=== PATIENT | male | born 1990 | race Caucasian/White ===

== ENCOUNTER 2022-04-21 15:07 | Emergency (ER) | payer OTHER, SELFPAY ==
--- NOTE | ~2022-04-21 | XR_ITS ---
Clinical Indication: Chest pain PA and lateral views of the chest: Comparison: None Findings: The lungs are clear, without evidence of focal consolidation or pleural effusion. Cardiome diastinal silhouette is within normal limits. Bones and soft tissues are unremarkable. Impression: Normal chest. Reviewed, dictated and finalized at location [] E FARM MANAGER Impression: Normal chest.
--- NOTE | ~2022-04-21 | CT_ITS ---
EXAMINATION: CTA chest PE protocol DATE: 04/21/2022 17:39 INDICATION: chest pain TECHNIQUE: Computed tomography angiography (CTA) of the chest was performed with 100 mL Omnipaque-350 intravenous contrast timed to evaluate the pulmonary arteries. Coronal maximum intensity projection 3D-reconstructions were created by the technologist. The dose-length product (DLP) was 726.29 mGy-cm. Automated exposure control and iterative reconstruction technique were employed. COMPARISON: X-ray chest, same date. FINDINGS: Lung parenchyma and airways: Minimal dependent atelectasis. Pleura: Unremarkable. Thoracic inlet, axillae and chest wall: Unremarkable. Thoracic aorta: Normal. Mediastinum: Normal. Heart and pericardium: Normal. Coronary artery calcifications: Absent. Upper abdomen: No significant finding. Bones: No acute osseous finding. Pulmonary arteries: Study quality: Adequate. No pulmonary emboli detected. IMPRESSION: No CT evidence of acute pulmonary embolus. No acute process detected in the chest. Reviewed, dictated and finalized at location K. RT/EXPORT ADMINISTRATOR IMPRESSION: No CT evidence of acute pulmonary embolus. No acute process detected in the [address].
--- NOTE | 2022-04-21 15:09 | ECG_ITS ---
Measurements Intervals [place] Rate: 83 P: 39 DC: 146 QRS: 75 QRSD: 110 T: 11 QT: 353 QTc: 415 Interpretive Statements SINUS RHYTHM NONSPECIFIC T-WAVE ABNORMALITY NO PREVIOUS ECG AVAILABLE FOR COMPARISON Electronically Signed On 04-21-2022 15:51:10 EXHIBITION SPECIALIST by Brittaney iVllafana M.D.
[2022-04-21 15:31] VITALS: BP 140/93; PULSE 93; RESP 18; TEMP 36.9; O2SAT 98
[2022-04-21 15:39] LABS: Basophils Percent Auto 0.6 % (0.2-1.2); Eosinophils Absolute Auto 0.1 K/mm3 (0-0.3); Eosinophils Percent Auto 1.9 % (0-4.4); Hematocrit 42.7 % (42.0-52.0); Hemoglobin 15.5 g/dL (14.0-18.0); Immature Granulocyte Absolute 0.03 K/mm3 (0.00-0.031); Immature Granulocyte Percent A 0.5 % (0-0.5); Lymphocytes Absolute Auto 1.91 K/mm3 (0.9-3.2); Lymphocytes Percent Auto 30.2 % (18.3-44.2); Mean Corpuscular HGB Conc 36.3 g/dl (32-36); Mean Corpuscular Hemoglobin 31.1 pg (26-34); Mean Corpuscular Volume 85.6 fl (80-100); Mean Platelet Volume 9.6 fl (7.4-10.4); Monocytes Absolute Auto 0.5 K/mm3 (0.1-0.6); Monocytes Percent Auto 7.3 % (2.6-8.5); Neutrophils Absolute Auto 3.8 K/mm3 (1.3-6.7); Neutrophils Percent Auto 59.5 % (45.5-73.1); Platelet Count Result 246 k/mm3 (150-375); Red Blood Count 4.99 M/mm3 (4.6-6.20); Red Cell Distribution Width 11.9 % (11.5-14.5); White Blood Count 6.3 K/mm3 (4.5-10.0)
[2022-04-21 15:59] LABS: INR 1.1; Partial Thromboplastin Time 25.8 SECONDS (22.3-36.8); Prothrombin Time 13.4 Seconds (11.1-14.7)
[2022-04-21 16:01] LABS: Alanine Aminotransferase 51 U/L (6-50); Albumin Level 4.7 g/dL (3.5-5.1); Alkaline Phosphatase 80 U/L (38-126); Anion Gap 7 mmol/L (8-16); Aspartate Amino Transferase 26 U/L (17-59); Bilirubin,Total 0.6 mg/dL (0.2-1.3); Blood Urea Nitrogen 17 mg/dL (9-20); Carbon Dioxide 25 mmol/L (22-30); Chloride 109 mmol/L (98-107); Estimated CRCL calculation 114 ml/min; Estimated Glomerular Filt Rate > 60; Glucose 103 mg/dL (65-110); Lipase 54 U/L (23-300); Potassium 3.7 mmol/L (3.4-5.0); Sodium 141 mmol/L (137-145)
[2022-04-21 16:12] LABS: Troponin I < 0.012 ng/mL (0.000-0.034)
[2022-04-21] MEDS: SODIUM CHLORIDE 0.9% IV 1,000 ML 999 ML IV CONT (17:29)
[2022-04-21 17:35] LABS: Influenza A QL RT-PCR Negative (Negative); Influenza B QL RT-PCR Negative (Negative); RSV RNA, RT-PCR Negative (Negative); SARS-CoV-2 RNA PCR Negative
--- NOTE | 2022-04-21 17:39 | ED.CHESTPAIN ---
HPI - Chest Pain General Chief Complaint: Chest Pain Stated Complaint: chest pain Time Seen by Provider: 04/21/22 16:20 History of Present Illness HPI narrative: 31-year-old male presents emergency room for evaluation of intermittent chest pain for 10 days. Reports feeling like somebody is sticking a knuckle into the left lateral wall of his chest. States pain is present for several minutes to hours. Patient states that he had COVID over Thanksgiving break 2 and half weeks ago, recovered in 4 days after taking Plaquenil and ivermectin. Also endorses shortness of breath, brain fog, and fatigue. Related Data Home Medications Medication Instructions Recorded Confirmed omeprazole 40 mg capsule,delayed mg 04/21/22 release Allergies Allergy/AdvReac Type Severity Reaction Status Date / Time acetaminophen [From Percocet] Allergy Itching Verified 04/21/22 16:26 oxycodone [From Percocet] Allergy Itching Verified 04/21/22 16:26 Penicillins Allergy Difficulty Verified 04/21/22 16:26 Breathing Review of Systems Review of Systems: CONSTITUTIONAL: Denies fever, chills, or sweats. EYES: Denies visual changes, redness, or discharge. ENT: Denies rhinorrhea, congestion, sore throat, or otalgia. CARDIOVASCULAR: Reports chest pain RESPIRATORY: Denies cough or dyspnea. GASTROINTESTINAL: Denies abdominal pain, nausea, vomiting, or diarrhea. GENITOURINARY: Denies dysuria or hematuria. SKIN: Denies rash or itching. MUSCULOSKELETAL: Denies back pain, joint pain, or myalgia. NEUROLOGIC: Reports dizziness PSYCHIATRIC: Denies anxiety or depression. Exam Narrative: GENERAL: Well-appearing, well-nourished, no physical limitations, and in no acute distress. HEAD: Normocephalic, atraumatic. EYES: Conjunctivae normal, PERRLA and EOMI. ENT: External nose normal, Nares clear, no rhinorrhea or epistaxis. Mucous membranes moist. Oropharynx without tonsillar hypertrophy exudate or other lesions. External ears normal, bilateral TMs normal bilaterally NECK: Supple. No adenopathy or masses. CHEST: Clear to auscultation. No respiratory distress. No wheezes rales or rhonchi. HEART: Regular rate and rhythm. No murmur heard. Normal peripheral pulses. EXTREMITIES: Normal range of motion. No edema. No clubbing or cyanosis SKIN: Warm, dry, no rash. No noted wounds NEURO: No focal deficits. Alert and oriented x3. MAEW. CN's II-XI intact bilaterally, normal gait PSYCH: Cooperative. Normal mood and affect. Course Vital Signs Vital signs: Vital Signs Temperature 36.9 C 04/21/22 15:31 Pulse Rate 93 04/21/22 15:31 Respiratory Rate 18 04/21/22 15:31 Blood Pressure 140/93 H 04/21/22 15:31 Pulse Oximetry 98 04/21/22 15:31 Oxygen Delivery Room Air 04/21/22 15:31 Temperature 36.9 C 04/21/22 15:31 Pulse Rate 93 04/21/22 15:31 Respiratory Rate 18 04/21/22 15:31 Blood Pressure 140/93 H 04/21/22 15:31 Pulse Oximetry 98 04/21/22 15:31 Oxygen Delivery Room Air 04/21/22 15:31 MDM - Chest Pain MDM Narrative Medical decision making narrative: 31-year-old male presented emergency room complaints of chest pain for 10 days. Exam showed no evidence of volume overload. EKG showed normal sinus rhythm, no signs of ischemia. Troponin was negative. Patient had a slightly elevated D-dimer, CTA was obtained showing no evidence of PE. Labs are unremarkable. Chest x-ray showed no acute cardiopulmonary process. Heart score was 0. Will discharge patient home to be CP follow-up. We will also provide patient 5-day course of steroids as this could be possible effects of long COVID. Lab Data 04/21/22 15:32 04/21/22 15:32 Labs: Lab Results 04/21/22 04/21/22 04/21/22 Range/Units 15:32 15:32 15:32 WBC 6.3 (4.5-10.0) K/mm3 RBC 4.99 (4.6-6.20) M/mm3 Hgb 15.5 (14.0-18.0) g/dL Hct 42.7 (42.0-52.0) % MCV 85.6 (80-100) fl MCH 31.1 (26-34) pg MCHC 36.3 H (32-36
[2022-04-21 19:07] VITALS: BP 148/86; PULSE 88; RESP 16; O2SAT 98
--- NOTE | 2022-04-29 12:39 | PC.NURSE ---
LATE ENTRY This note is being entered to document information to the patient's record. The following information was omitted on [04/21/22], by [Bishnu Mendoza]. NS stopped at 1825
--- NOTE | 2022-05-02 20:07 | PC.NURSE ---
LATE ENTRY This note is being entered to document information to the patient's record. The following information was omitted on [04/21/22], by [tiara agudelo]. NS ended at 1830
== END 2022-04-21 19:08 | disposition home or self-care (01) ==
PROVIDERS: Emergency Medicine; Emergency Provider Nurse Practitioner Family
DX: R07.89 Other chest pain (principal); Z20.822 Contact with and (suspected) exposure to COVID-19; Z86.16 Personal history of COVID-19
CPT/HCPCS: 36415; 71046; 71275; 80053; 83690; 84484; 85025; 85380; 85610; 85730; 87637; 93005; 96360; 99284; J7030; Q9967

== ENCOUNTER 2023-12-13 19:17 | Emergency (ER) | payer OTHER, SELFPAY ==
--- NOTE | ~2023-12-13 | CT_ITS ---
EXAMINATION: CT brain wo con DATE: 12/13/2023 19:29 INDICATION: right side facial numbness . TECHNIQUE: Computed tomography (CT) of the head was performed without intravenous contrast. The mA wa s adjusted according to patient size. Iterative reconstruction technique was employed. The dose-lengt h product was 605.33 mGy-cm. COMPARISON: None. FINDINGS: No acute intracranial hemorrhage or extra-axial fluid collection. No hydrocephalus, mass, or herniation. No acute ischemic infarct. Unremarkable dural venous sinus attenuation. No acute osseous abnormality. Mucosal thickening and an air-fluid level noted in the right maxillary sinus, the remaining aerated s paces are clear. IMPRESSION: No acute intracranial process. Right maxillary air-fluid level, likely hemorrhage (patient reportedly has a nosebleed currently). Results reported telephonically to Dr. Sanders by Dr. Seo at 7:30 PM on 12/13/2023. Reviewed, dictated and finalized at location K. IMPRESSION: No acute intracranial process. Right maxillary air-fluid level, likely hemorrhage (patient reportedly has a no sebleed currently). Results reported telephonically to Dr. Sanders by Dr. Seo at 7:30 PM on 12/13/2023.
--- NOTE | ~2023-12-13 | CT_ITS ---
EXAMINATION: CTA brain carotid DATE: 12/13/2023 19:48 INDICATION: right side facial numbness, nose bleed s/p adjustm TECHNIQUE: Computed tomographic angiography (CTA) of the head and neck was performed with 100 mL Omni paque-350 intravenous contrast. Automated exposure control and iterative reconstruction technique wer e employed. The dose-length product was 1158.04 mGy-cm. Maximum intensity projection and volume rend ered 3D-reconstructions were created by the technologist on a separate workstation. COMPARISON: CT brain, same date. FINDINGS: CTA HEAD: No large vessel occlusion, aneurysm, high flow vascular malformation, nidus or extravasation. Symmetr ic parenchymal enhancement. Patent cerebral veins. CTA NECK: Aortic arch and proximal great vessels: Bovine arch anatomy. Right common carotid, carotid bifurcation, and internal carotid artery: No significant plaque.There i s 0% stenosis of the proximal right internal carotid artery relative to normal distal artery lumen di ameter (NASCET criteria). Left common carotid, carotid bifurcation, and internal carotid artery: No significant plaque.There is 0% stenosis of the proximal left internal carotid artery relative to normal distal artery lumen diam eter (NASCET criteria). Vertebral arteries: No significant plaque or stenosis. Other findings: None. IMPRESSION: No large vessel intracranial occlusion, high-grade intracranial stenosis, or aneurysm. No carotid or vertebral artery occlusion, dissection, or significant stenosis. Reviewed, dictated and finalized at location K. IMPRESSION: No large vessel intracranial occlusion, high-grade intracranial stenosis, or an eurysm. No carotid or vertebral artery occlusion, dissection, or significant stenosis.
[2023-12-13 19:24] LABS: Glucose Point of Care 105 mg/dl (65-105)
[2023-12-13 19:38] LABS: Basophils Percent Auto 0.5 % (0.2-1.2); Eosinophils Absolute Auto 0.2 K/mm3 (0-0.3); Eosinophils Percent Auto 2.1 % (0-4.4); Hemoglobin 15.2 g/dL (14.0-18.0); Immature Granulocyte Absolute 0.02 K/mm3 (0.00-0.031); Immature Granulocyte Percent A 0.3 % (0-0.5); Lymphocytes Absolute Auto 2.57 K/mm3 (0.9-3.2); Lymphocytes Percent Auto 34.5 % (18.3-44.2); Mean Corpuscular HGB Conc 36.2 g/dl (32-36); Mean Corpuscular Hemoglobin 30.9 pg (26-34); Mean Corpuscular Volume 85.4 fl (80-100); Mean Platelet Volume 9.4 fl (7.4-10.4); Monocytes Absolute Auto 0.5 K/mm3 (0.1-0.6); Monocytes Percent Auto 7.1 % (2.6-8.5); Neutrophils Absolute Auto 4.1 K/mm3 (1.3-6.7); Neutrophils Percent Auto 55.5 % (45.5-73.1); Platelet Count Result 193 k/mm3 (150-375); Red Blood Count 4.92 M/mm3 (4.6-6.20); Red Cell Distribution Width 12.3 % (11.5-14.5); White Blood Count 7.5 K/mm3 (4.5-10.0)
[2023-12-13 19:42] LABS: Estimated Glomerular Filt Rate > 60
[2023-12-13 19:46] VITALS: BP 158/94; PULSE 76; RESP 18; TEMP 36.9; O2SAT 96
[2023-12-13 19:50] LABS: Alanine Aminotransferase 44 U/L (6-50); Albumin Level 4.5 g/dL (3.5-5.1); Alkaline Phosphatase 95 U/L (38-126); Anion Gap 11 mmol/L (4-12); Aspartate Amino Transferase 30 U/L (17-59); Bilirubin,Total 0.8 mg/dL (0.2-1.3); Blood Urea Nitrogen 13 mg/dL (9-20); Calcium 9.4 mg/dL (8.4-10.2); Carbon Dioxide 23 mmol/L (22-30); Chloride 104 mmol/L (98-107); Estimated Glomerular Filt Rate > 60; Glucose 107 mg/dL (65-110); Magnesium 1.9 mg/dL (1.6-2.3); Potassium 3.6 mmol/L (3.4-5.0); Sodium 138 mmol/L (137-145)
[2023-12-13 19:51] VITALS: BP 158/94; PULSE 76; RESP 16; O2SAT 96
[2023-12-13 19:51] LABS: INR 1.1; Prothrombin Time 14.1 Seconds (11.1-14.7)
[2023-12-13 19:52] LABS: Partial Thromboplastin Time 25.8 Seconds (22.3-36.8)
[2023-12-13 19:55] VITALS: BP 158/94; PULSE 78; RESP 18; TEMP 36.9; O2SAT 95
[2023-12-13] MEDS: SODIUM CHLORIDE 0.9% IV 1,000 ML 999 ML IV CONT (19:58)
[2023-12-13 20:01] LABS: Troponin I < 0.012 ng/mL (0.000-0.034)
--- NOTE | 2023-12-13 20:42 | ED.GENADULT ---
HPI - General Adult General Chief complaint: Neuro Symptoms/Deficit Stated complaint: numbness Time Seen by Provider: 12/13/23 19:22 History of Present Illness HPI narrative: Patient is a 33-year-old gentleman presents emergency department chief complaint of nose bleed. Patient reports he was mood related by the chiropractor then when to get something to eat and then felt as though his nose and started a drip in any had a large amount of blood from his right nostril. The patient states that he feels pressure in his right forehead in his right maxillary sinus area. The patient reports no weakness in his arms or legs denies numbness or tingling in his arms or legs reports no altered mental status. Patient reports not being on blood thinners reports that was not aggressively manipulated during chiropractic adjustment Related Data Home Medications Medication Instructions Recorded Confirmed omeprazole 40 mg capsule,delayed mg 04/21/22 release Allergies Allergy/AdvReac Type Severity Reaction Status Date / Time acetaminophen [From Percocet] Allergy Itching Verified 04/21/22 16:26 oxycodone [From Percocet] Allergy Itching Verified 04/21/22 16:26 Penicillins Allergy Difficulty Verified 04/21/22 16:26 Breathing Review of Systems Review of Systems: A 10 system review of systems was completed on the patient and is negative except for what is stated in the HPI. Nursing and ancillary documentation was reviewed. Exam Narrative: GENERAL: Well-appearing, well-nourished, and in no acute distress. HEAD: Normocephalic, atraumatic. EYES: PERRLA and EOMI. ENT: Nares clear, no rhinorrhea or epistaxis. Mucous membranes moist. NECK: Supple. CHEST: Clear to auscultation. No respiratory distress. HEART: Regular rate and rhythm. No murmur heard. Normal peripheral pulses. ABDOMEN: Soft, nontender, nondistended, normal active bowel sounds. EXTREMITIES: Normal range of motion. No edema. SKIN: Warm, dry, no rash. NEURO: No focal deficits. Alert and oriented x3. PSYCH: Normal mood and affect. Course Vital Signs Vital signs: Vital Signs Temperature 36.9 C 12/13/23 19:46 Pulse Rate 76 12/13/23 19:46 Respiratory Rate 18 12/13/23 19:46 Blood Pressure 158/94 H 12/13/23 19:46 Pulse Oximetry 96 08/06/24 19:46 Oxygen Delivery Room Air 12/13/23 19:46 Temperature 36.9 C 12/13/23 19:55 Pulse Rate 78 12/13/23 19:55 Respiratory Rate 18 12/13/23 19:55 Blood Pressure 158/94 H 12/13/23 19:55 Pulse Oximetry 95 12/13/23 19:55 Oxygen Delivery Room Air 12/13/23 19:46 Medical Decision Making Vital Signs Vital Signs: Vital Signs Temperature 36.9 C 12/13/23 19:46 Pulse Rate 76 12/13/23 19:46 Respiratory Rate 18 12/13/23 19:46 Blood Pressure 158/94 H 12/13/23 19:46 Pulse Oximetry 96 12/13/23 19:46 Oxygen Delivery Room Air 12/13/23 19:46 Temperature 36.9 C 12/13/23 19:55 Pulse Rate 78 12/13/23 19:55 Respiratory Rate 18 12/13/23 19:55 Blood Pressure 158/94 H 12/13/23 19:55 Pulse Oximetry 95 12/13/23 19:55 Oxygen Delivery Room Air 12/13/23 19:46 Lab Data 12/13/23 19:32 12/13/23 19:33 Labs: Lab Results 12/13/23 12/13/23 12/13/23 Range/Units 19:21 19:32 19:33 WBC 7.5 (4.5-10.0) K/mm3 RBC 4.92 (4.6-6.20) M/mm3 Hgb 15.2 (14.0-18.0) g/dL Hct 42.0 (42.0-52.0) % MCV 85.4 (80-100) fl MCH 30.9 (26-34) pg MCHC 36.2 H (32-36) g/dl RDW 12.3 (11.5-14.5) % Plt Count 193 (150-375) k/mm3 MPV 9.4 (7.4-10.4) fl Immature Gran % (Auto) 0.3 (0-0.5) % Neut % (Auto) 55.5 (45.5-73.1) % Lymph % (Auto) 34.5 (18.3-44.2) % [place] % (Auto) 7.1 (2.6-8.5) % Eos % (Auto) 2.1 (0-4.4) % Baso % (Auto) 0.5 (0.2-1.2) % Lymph # (Auto) 2.57 (0.9-3.2) K/mm3 [place] # (Auto) 0.5 (0.1-0.6) K/mm3 Eos # (Auto) 0.2 (0-0.3) K/mm3 Baso # (Auto)
[2023-12-13] MEDS: PHENYLEPHRINE 1% NA SPR (*BKC) 15 ML BTL 2 SPRAY NASAL (20:54)
[2023-12-13 21:08] LABS: Lactic Acid Reflex 0.6 mmol/L (0.7-2.0)
[2023-12-13 21:17] LABS: Add Urine Microscopic? NO; Appearance Urine Clear (Clear); Bilirubin Urine Negative (Negative); Blood Urine Negative (Negative); Color Urine Yellow (Yellow); Glucose Urine UA Negative (Negative); Ketones Urine Negative (Negative); Leukocyte Esterase Ur Negative LEU/UL (Negative); Nitrate Urine Negative (Negative); Protein Urine Negative (Negative); Specific Grav Ur > 1.045 (1.001-1.035); Urobilinogen Urine 0.2 mg/dL (<2.0); pH Urine 7.5 (5.0-9.0)
[2023-12-13 21:35] VITALS: BP 154/99; PULSE 81; RESP 19; TEMP 37.1; O2SAT 94
== END 2023-12-13 21:35 | disposition home or self-care (01) ==
PROVIDERS: Emergency Provider Emergency Medicine
DX: R04.0 Epistaxis (principal); R51.9 Headache, unspecified
CPT/HCPCS: 36415; 70450; 70496; 70498; 80053; 81003; 82948; 83605; 83735; 84484; 85025; 85610; 85730; 96360; 99284; A9270; J7030; Q9967

== ENCOUNTER 2025-02-18 12:10 | Emergency (ER) | payer OTHER, SELFPAY ==
--- NOTE | ~2025-02-18 | CT_ITS ---
EXAMINATION: CT abdomen pelvis w con DATE: 02/18/2025 15:28 INDICATION: Right abdominal pain. TECHNIQUE: Computed tomography (CT) of the abdomen and pelvis was performed with 100 mL Omnipaque 350 intravenous contrast. Automated exposure control and iterative reconstruction technique were employed. The dose-length product was 970.66 mGy-cm. COMPARISON: None. FINDINGS: The visualized portions of lung bases demonstrate mild atelectasis. No pleural effusion. The heart size is normal. No pericardial effusion. The liver, gallbladder, spleen, pancreas, adrenal glands, and kidneys are normal. There are no dilated loops of bowel. The appendix is normal. There are no pathologically enlarged lymph nodes. There is no free intraperitoneal fluid. There is a supraumbilical ventral hernia containing fat. There is mild thoracic and lumbar spondylosis. IMPRESSION: 1. Supraumbilical ventral hernia containing fat. Reviewed, dictated and finalized at location E.
[2025-02-18 12:48] VITALS: BP 149/93; PULSE 66; RESP 16; TEMP 36.9; O2SAT 98
[2025-02-18 13:15] LABS: Hematocrit 45.5 % (42.0-52.0); Hemoglobin 16.2 g/dL (14.0-18.0); Immature Granulocyte Percent A 0.2 % (0-0.5); Lymphocytes Absolute Auto 1.79 K/mm3 (0.9-3.2); Mean Corpuscular HGB Conc 35.6 g/dl (32-36); Mean Corpuscular Hemoglobin 30.5 pg (26-34); Mean Corpuscular Volume 85.5 fl (80-100); Nucleated Red Blood Cells Absolute Auto 0.000 K/mm3 (0.0-0.012); Nucleated Red Blood Cells Perc 0.0 % (0.0-0.2); Platelet Count Result 220 k/mm3 (150-375); Red Blood Count 5.32 M/mm3 (4.6-6.20); White Blood Count 4.7 K/mm3 (4.5-10.0)
[2025-02-18 13:29] LABS: Alanine Aminotransferase 50 U/L (6-50); Albumin Level 4.9 g/dL (3.5-5.1); Alkaline Phosphatase 87 U/L (38-126); Anion Gap 6 mmol/L (4-12); Aspartate Amino Transferase 29 U/L (17-59); Bilirubin,Total 0.6 mg/dL (0.2-1.3); Blood Urea Nitrogen 15 mg/dL (9-20); Calcium 9.5 mg/dL (8.4-10.2); Carbon Dioxide 26 mmol/L (22-30); Chloride 104 mmol/L (98-107); Estimated CRCL calculation 105 ml/min; Estimated Glomerular Filt Rate > 60; Glucose 103 mg/dL (65-110); Lipase 45 U/L (23-300); Potassium 4.2 mmol/L (3.4-5.0); Sodium 136 mmol/L (137-145); Total Protein 8.2 g/dL (6.3-8.2)
[2025-02-18 13:33] LABS: Add Urine Microscopic? NO; Appearance Urine Clear (Clear); Glucose Urine UA Negative (Negative); Leukocyte Esterase Ur Negative LEU/UL (Negative); Nitrate Urine Negative (Negative); Specific Grav Ur 1.022 (1.001-1.035)
--- NOTE | 2025-02-18 14:55 | ED_ITS ---
HPI - Abdominal Pain General Chief Complaint: Abdominal Pain Stated Complaint: abdominal pain Time Seen by Provider: 02/18/25 14:56 Source: patient Mode of arrival: ambulatory Limitations: no limitations History of Present Illness HPI narrative: Patient is a 34-year-old male who presents the ED with report of abdominal pain. 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 He states he went to take a shower noticed that his belly button had filled with fluid and had been protruding outward. [place] bloated overall. States the swelling has since gone down since resting/sitting, but is still having some discomfort throughout R sided abdomen. Reports diarrhea with intermittent bright red rectal bleeding for the past couple weeks. States he notices the blood mostly with wiping after the bowel movement. Denies rectal pain with bowel movements. Related Data Home Medications ?Medication ?Instructions ?Recorded ?Confirmed ?Last Taken ?Type omeprazole 40 mg capsule,delayed mg 04/21/22 Unknown History release Allergies Allergy/AdvReac Type Severity Reaction Status Date / Time oxycodone (From Percocet) Allergy Itching Verified 02/18/25 12:11 Penicillins Allergy Difficulty Verified 02/18/25 12:11 Breathing Review of Systems 2 Review of Systems: All systems reviewed & are unremarkable except as noted in HPI. All systems reviewed & are unremarkable except as noted in HPI and below Exam 2 Narrative: GENERAL: Well-appearing, obese with BMI of 33.8, and in no acute distress. HEAD: Normocephalic, atraumatic. CHEST: Clear to auscultation. ?No respiratory distress. HEART: Regular rate and rhythm.? ABD: Mild discomfort throughout R mid to lower abdomen. Small umbilical hernia, minimally tender, soft, easily reducible. Nondistended. Normal bowel sounds. SKIN: Clean, dry, intact NEURO: ?Alert and oriented x3. Steady gait. No ataxic movements. PSYCHIATRIC: Normal mood and affect. Course Vital Signs Vital signs: Vital Signs Temperature 98.4 F 02/18/25 12:48 Pulse Rate 66 02/18/25 12:48 Respiratory Rate 16 02/18/25 12:48 Blood Pressure 149/93 H 02/18/25 12:48 Pulse Oximetry 98 02/18/25 12:48 Oxygen Delivery Room Air 02/18/25 12:48 Temperature 98.4 F 02/18/25 12:48 Pulse Rate 65 02/18/25 15:09 Respiratory Rate 14 02/18/25 15:09 Blood Pressure 153/86 H 02/18/25 15:09 Pulse Oximetry 99 02/18/25 15:09 Oxygen Delivery Room Air 02/18/25 12:48 MDM - Abdominal Pain MDM Narrative Medical decision making narrative: MSE by ANKIT in triage. Care resumed by myself. Patient with small reducible umbilical hernia on exam. Vital signs are otherwise stable. He is in no acute distress. Laboratory studies are unremarkable. No leukocytosis or anemia. Stable electrolytes. Stable kidney function. Normal LFTs and lipase. UA is clear. CT scan of abdomen/pelvis was obtained: IMPRESSION: 1. Supraumbilical ventral hernia containing fat. Discussed lab and imaging findings, overall reassuring workup with patient. Will refer to General surgery for management of hernia if needed. Discussed techniques to reduce if hernia does present again. Discussed possibility of hemorrhoids causing occasional rectal bleeding. Will refer to GI. Discussed [id number] therapies to try. Patient otherwise safe for discharge home. Given strict return precautions. He agrees with plan. Feels comfortable going home. Discharged in stable condition. Medical Records Attestation: I reviewed the patient's medical records. Lab Data Attestation: I reviewed the patient's lab results. 02/18/25 13:06 02/18/25 13:06 Labs: Lab Results 02/18/25 02/18/25 Range/Units 13:06 13:22 WBC 4.7 (4.5-10.0) K/mm3 RBC 5.32 (4.6-6.20) M/mm3 Hgb 16.2 (14.0-18.0) g/dL Hct 45.5 (42.0-52.0) % MCV 85.5 (80-100) fl MCH 30.5 (26-34) pg MCHC 35.6 (32-36) g/dl RDW 12.4 (11.5-14.5) % Plt Count 220 (150-375) k/mm3 MPV 9.1 (7.4-10.4) fl Immature Gran % (Auto) 0.2 (0-0.5) % Neut % (Auto) 47.2 (45.5-73.1) % Lymph % (Auto) 38.5 (18.3-44.2) % [place] % (Auto) 10.5 H (2.6-8.5) % Eos % (Auto) 3.0 (0-4.4) % Baso % (Auto) 0.6 (0.2-1.2) % Lymph # (Auto) 1.79 (0.9-3.2) K/mm3 [place] # (Auto) 0.5 (0.1-0.6) K/mm3 Eos # (Auto) 0.1 (0-0.3) K/mm3 Baso # (Auto) 0.0 (0.0-0.1) K/mm3 Abs Immat Gran (auto) 0.01 (0.00-0.031) K/mm3 Absolute Neuts (auto) 2.2 (1.3-6.7) K/mm3 Absolute Nucleated RBC 0.000 (0.0-0.012) K/mm3 Nucleated RBC % 0.0 (0.0-0.2) % Sodium 136 L (137-145) mmol/L Potassium 4.2 (3.4-5.0) mmol/L Chloride 104 (98-107) mmol/L Carbon Dioxide 26 (22-30) mmol/L Anion Gap 6 (4-12) mmol/L BUN 15 (9-20) mg/dL Creatinine 1.06 (0.7-1.3) mg/dL Estim Creat Clear Calc 105 ml/min Estimated GFR > 60 (59 - ) Glucose 103 (65-110) mg/dL Calcium 9.5 (8.4-10.2) mg/dL Total Bilirubin 0.6 (0.2-1.3) mg/dL AST 29 (17-59) U/L ALT 50 (6-50) U/L Alkaline Phosphatase 87 (38-126) U/L Total Protein 8.2 (6.3-8.2) g/dL Albumin 4.9 (3.5-5.1) g/dL Lipase 45 (23-300) U/L Urine Color Yellow (Yellow) Urine Appearance Clear (Clear) Urine pH 5.5 (5.0-9.0) Ur Specific [place] 1.022 (1.001-1.035) Urine Protein Negative (Negative) mg/dL Urine Glucose (UA) Negative (Negative) mg/dL Urine Ketones Negative (Negative) mg/dL Ur Blood (Man) Negative (Negative) Urine Nitrate Negative (Negative) Urine Bilirubin Negative (Negative) Urine Urobilinogen 0.2 (<2.0) mg/dL Leukocyte Esterase Rfl Negative (Negative) BILL/UL Imaging Data Attestation: I personally reviewed and interpreted this imaging study as follows: Radiologist's impression: ITS Impressions Abdomen/Pelvis CT 02/18/25 15:30 IMPRESSION: 1. Supraumbilical ventral hernia containing fat. Discharge Plan Discharge Clinical Impression: Supraumbilical hernia Patient Disposition: Home Condition: Stable Instructions: Antibiotic Form, Hemorrhoids (ED), Umbilical Hernia (ED) Additional Instructions: Your workup here was reassuring. Your imaging did show evidence of a umbilical (belly button) hernia. Limit strenuous activity/heavy lifting. If you do notice a persistent bulge in your belly button region, recommend laying flat and applying gentle pressure to area to reduce back inside. Recommend follow-up with General surgery for further evaluation of hernia if needed. I have also provided GI information for follow-up. It is possible you may have hemorrhoids causing the intermittent bleeding. Use [id number] preparation H/hydrocortisone ointment if needed. Return to the ED for worsening or severe pain, unable to reduce hernia, unable to keep down food or drink, severe rectal bleeding, dizziness/lightheadedness, or any other symptoms of concern. Patient Language: Portuguese Prescriptions: No Action omeprazole 40 mg capsule,delayed release(DR/EC) prednisone 20 mg tablet 60 mg PO DAILY 5 Days Qty: 15 0RF Follow-up/Referrals: Marlen Esquivel MD [Physician, General Surgery] Referral Note: GENERAL SURGERY PHYSICIAN NOT ON STAFF,NONSTAFF [Primary Care Provider] Robert Coffey MD [Physician, Gastroenterology] Referral Note: GI Time of Disposition: 15:43
[2025-02-18 15:09] VITALS: BP 153/86; PULSE 65; RESP 14; O2SAT 99
--- OUTSIDE RECORDS SUMMARY | 2025-02-18 16:13 | XMS_ITS | Encounter Summary ---
Author Organization [facility] Address [address] [place] [id number] Care Team Providers Care [employer] Name Role Phone Mickey Orona DO Primary Care Provider [phone] Radha Galvan DO Primary Care Provider [phone] Encounter Details Date Type Department Care Team (Late st Contact Info) Description 08/12/2020 [employer] Smartphone Physical Message Enc [facility] Family Medicine - [place] [address] [facility], [address] [place] [address] [employer], [facility] Provider Knee Injection Social History Tobacco Use Types Packs/Day Years Used Date Smoking Tobacco: Never Smokeless Tobacco: Never Alcohol Use Standard Drinks/Week Comments Yes 5 (1 standard drink = 0.6 oz pur e alcohol) AUDIT-C Answer Date Recorded Frequency of Alcohol Consumption 2-3 times a wee k 10/16/2019 Average Number of Drinks 3 or 4 020 Frequency of Binge Drinking Never 01/2020 PHQ-2 Answer Date Recorded PHQ-2 Score - If the patient scores above 3, please move on to questions 3-9 0 08/08/2020 [facility] Occupat ional Health - Occupational Stress Questionnaire Answer Date Recorded Feeling of Stress To some extent 10/16/2019 Exercise Vital Sign Answer Date Recorde d Days of Exercise per Week 5 days 2019 Minutes of Exercise per Session 30 min 10/16/2019 Education Answer Date Recorded What is the highest level of school you have completed or the highest degree you have received? Some college, no degree 10/16/2019 Sex and Gender Information Value Date Recorded Sex Assigned at Male 06/28/2024 1:41 PM [employer] Legal Sex Male 1:57 PM CDT Gender Identity Male 08/31/2021 9:35 AM CDT Sexual Orientation Straight 08/31/2021 9: 35 AM CDT COVID-19 Exposure Response Date Recorded In the last month, have you been in contact with someone who was confirmed or suspected to have Coronavirus / COVID-19? No / Unsure 08/12/2020 10:14 AM CDT documented as of this encounter Plan of Treatment Upcoming Encounters Date Type Department Care Team (Late st Contact Info) Description 02/25/2025 10:00 AM CDT [facility] [address] [address] Una Peterson APRN [address] [facility], [address] [address] documented as of this encounter Visit Diagnoses Not on filedocumented in this encounter Additional Health Concerns Assessment Noted Time PHQ-9 Depression Total Score: 3 08/09/19 21 3:42 PM CDT documented as of this encounter Care Teams [employer] Relationship Specialty Start Date End Date Mickey Orona DO PCP - General FAMILY PRACTICE 10/16/19 04/27/22 Radha Galvan DO [address] [place] [address] PCP - General FAMILY PRACTICE 05/24/22 documented as of this encounter
--- OUTSIDE RECORDS SUMMARY | 2025-02-18 16:13 | XMS_ITS | Clinical Summary ---
Author Organization [facility] Address [address] [place] [address] Care Team Providers Care Tube Bender Name Role Phone Radha Galvan DO Primary Care Provider [phone] Allergies Active Allergy Reactions Criticality Noted Date Comments Atorvastatin Other (see comment) 09/26/2023 cramping Penicillins Anaphylaxis High 10/16/2019 Oxycodone-Acetaminophen Hives 07/13/2021 Medications metoprolol tartrate (LOPRESSOR) 100 MG tablet Take one tablet (100mg total) by mouth ONE HOUR PRIOR TO CORONARY CTA. 1 tablet 5 Active losartan (COZAAR) 25 MG tabletIndication s:Well adult exam TAKE 1 TABLET(25 MG) BY MOUTH DAILY 90 tablet 1 5 Active metoprolol succinate ER (TOPROL-XL) 25 MG 24 hr tabletIndication s:PVC (premature ventricular contraction) Take 1 tablet (25 mg total) by mouth daily. 90 tablet 1 5 Active Active Problems Problem Noted Date Diagnosed Date Gastro-esophageal reflux 07/04/2023 Overview (07/04/2023): Oct 18, 2022 Entered By: TONNY LOPEZ Comment: no symptoms now with using apple cider vinegar Obstructive sleep apnea syndrome in adult 2023 Status post arthroscopy of knee 06/03/2022 Migraine without aura and wi thout status migrainosus, not intractable 10/16/2019 History of traumatic brain injury 10/16/2019 Overview (10/16/2019): x2 Other male erectile dysfunction 10/16/2019 Sensorineural hearing loss (SNHL) of right ear 0 10/16/2019 Brachial plexopathy 10/16/2019 Resolved Problems Problem Noted Date Diagnosed Date Resolved Date Tobacco user 07/04/2023 07/11/2023 Encounters Date Type Department Care Team Description 01/29/2025 Telephone [facility] - [place] [address], [address] [place] [address] Radha Galvan, Referral 01/03/2025 [facility]phone [facility] [address], [address] [place] [address] Juan Cavanaugh MD Reschedule from Last 3 Months Immunizations Immunization Administration Dates Next Due Anthrax Vaccine 11/29/2011, 1,08/05/2010,10/18,05/20/2009,03/27/2009 H1N1 Injectable 2008 Influenza 03/25/2009 Hepatitis A/Hepatitis B(Twinrix) 009,06/07/2008,03/08/2008,10/26 Influenza (FluMist) 02/11/2012,01/28/2011,2009 Influenza (Generic) 03/01/2017, 6,03/14/2013,02/18,06/07/2008 Influenza Adult (Generic) 02/25/2014,01/29/2014 MMR (MMRII) 09/27/2007 Meningococcal (Menactra) 09/27/2007 PFIZER COVID-19 (ORIGINAL FO RMULATION, PURPLE CAP) mRNA, LNP-S, PF, 30 MCG/0.3 ML DOSE 03/10/2021,01/27/2021,01/08/2021 Polio IPV (Ipol) 10/27/2007 Small Pox 06/02/2011 Td (TDVAX) 10/27/2007 Tdap (Adacel) 10/16/2019 Typhoid (Typhim ) 03/23/2016, 3,12/07/2010,11/12 Yellow Fever (YF- Vax) 10/27/2007 Family History Medical History Relation Comments No Known Problems Brother No Known Problems Father No Known Problems Maternal Aunt Stroke Maternal Grandfather multiple No Known Problems Maternal Grandmother Stroke Maternal Uncle multiple No Known Problems Mother No Known Problems Other No Known Problems Paternal Aunt AAA Paternal Grandfather Stent Cardiac Paternal Grandfather No Known Problems Paternal Grandmother No Known Problems Paternal Uncle No Known Problems Sister No Known Problems Son Relation Status Comments Brother Alive Father Alive Maternal Aunt Maternal Grandfather Maternal Grandmother Maternal Uncle Mother Alive Other Paternal Aunt Paternal Grandfather Paternal Grandmother Paternal Uncle Sister Alive Son Alive Social History Tobacco Use Types Packs/Day Years Used Date Smoking Tobacco: Former Cigarettes 0.5 2 0 09/06/2008 - 09/06/2010 Cigars Passive Smoke Exposure: Past Smokeless Tobacco: Former Quit: 09/12/2019 Tobacco Cessation:Counseling Given: No Comments:Former, Quit 2010 Alcohol Use Standard Drinks/Week Comments Yes 2 (1 standard drink = 0.6 oz pur e alcohol) Social AUDIT-C Answer Date Recorded Frequency of Alcohol Consumption 2-3 times a wee k 10/16/2019 Average Number of Drinks 3 or 4 020 Frequency of Binge Drinking Never 01/2020 PHQ-2 Answer Date Recorded Patient Health Questionnaire-2 Score 0 06/10/2023 [facility] Questionnaire Answer [...] Sex Assigned at Male 06/28/2024 1:41 PM MANUAL LATHE OPERATOR Legal Sex Male 1:57 PM CDT Gender Identity Male 08/31/2021 9:35 AM CDT Sexual Orientation Straight 08/31/2021 9: 35 AM CDT Last Filed Vital Signs Vital Sign Reading Time Taken Comments Blood Pressure 124/90 06/29/2024 10:50 AM MANUAL LATHE OPERATOR Pulse 75 06/29/2024 10:50 AM MANUAL LATHE OPERATOR Temperature 37.1 C (98.7 F) 04/27/2024 8:51 AM MANUAL LATHE OPERATOR Respiratory Rate 18 04/27/2024 8:51 AM MANUAL LATHE OPERATOR Oxygen Saturation 97% 06/29/2024 10:50 AM MANUAL LATHE OPERATOR Inhaled Oxygen Concentration - - Weight 108 kg (238 lb 3.2 oz) 06/29/2024 10:50 A M MANUAL LATHE OPERATOR Height 177.8 cm (5' 10) 06/29/2024 10:50 AM MANUAL LATHE OPERATOR Body Mass Index 34.18 06/29/2024 10:50 AM MANUAL LATHE OPERATOR Plan of Treatment Upcoming Encounters Date Type Department Care Team (Late st Contact Info) Description 02/25/2025 10:00 AM CDT Office Visit [facility] [facility], [place] [address] [place], [place] [id number] Una Peterson APRN [address] [facility], [place] [address] [place], [place] [phone] Health Maintenance Due Date Last Done Comments HPV Vaccines (1 - 3-dose SCDM series) 2015 PHQ-2 (Physician [place]) 05/09/2024 06/10/2023 COVID-19 Vaccine ( season) 2025 03/10/2021, 01/27/2021, 01/08/2021 Influenza Adult (#1) 2025 03/01/2017, 03/23/2016, 02/25/2014, Additional history exists Annual Physical 04/27/2025 04/27/2024, 0207/2022, 08/08/2020 DTaP, Tdap and Td Vaccines (2 - Td or Tdap) 10/15/2029 10/16/2019, 10/27/2007 Meningococcal Vaccine Aged Out 09/27/2007 No afia nolan eligible based on patient's age to complete this topic Hepatitis A Vaccines Aged Out 11/12/2008, 06/07/2008, 03/08/2008, Additional history exists No longer eligible based on patient's age to complete this topic Hepatitis B Vaccines Completed 11/12/2008, 06/07/2008, 03/08/2008, Additional history exists Hepatitis C Completed 04/27/2024 Meningococcal B Vaccine Aged Out No l onger eligible based on patient's age to complete this topic Pneumococcal Vaccine: Pediatrics (0 to 5 Years) and At-Risk Patients (6 to 49 Years) Aged Out No longer eligible based on patient's age to complete this topic RSV Immunizations Under 20 Months Aged Out No longer eligible based on patient's age to complete this topic Procedures Procedure Name Priority Date/Time Associated Diagnosis Comments HEPATITIS C ANTIBODY Routine 04/27/2024 9:37 AM MANUAL LATHE OPERATOR Need for hepatitis C screening test from Last 3 Months or Most Recently Relevant to Health Maintenance Results * HEPATITIS C ANTIBODY ([facility] ONLY) (04/27/2024 9:37 AM MANUAL LATHE OPERATOR) HEPATITIS C AB NON-REACTI VE NON-REACT TRISTEN 04/27/2024 10:27 PM MANUAL LATHE OPERATOR [facility] Comment: ANTIBODIES TO HCV NOT DETECTED. DOES NOT EXCLUDE THE POSSIBILITY OF EXPOSURE TO HCV. 04/27/2024 9:37 AM MANUAL LATHE OPERATOR us Radha Cole [facility] Final Result [facility] [address] [place] [address], [id number] from Last 3 Months or Most Recently Relevant to Health Maintenance Insurance Care Teams Tube Bender Relationship Specialty Start Date End Date Radha Galvan DO [address] [place] [address] PCP - General FAMILY PRACTICE 05/24/22
--- OUTSIDE RECORDS SUMMARY | 2025-02-18 16:13 | XMS_ITS | Encounter Summary ---
Author Organization [facility] Address [facility] [place] [address] Care Team Providers Care Bedspread Folder Name Role Phone Radha Galvan DO Primary Care Provider [phone] Encounter Details Date Type Department Care Team (Late st Contact Info) Description 04/24/2024 [employer] Message Enc [facility] Family Medicine - [place] [address], [address] [place] [phone] [facility], [facility] Provider Labs and Appt 04/27 Social History Tobacco Use Types Packs/Day Years Used Date Smoking Tobacco: Former Cigarettes 0.5 2 0 09/06/2008 - 09/06/2010 Cigars Passive Smoke Exposure: Past Smokeless Tobacco: Former Quit: 09/12/2019 Comments:Former, Quit 2010 Alcohol Use Standard Drinks/Week Comments Yes 2 (1 standard drink = 0.6 oz pur e alcohol) Social AUDIT-C Answer Date Recorded Frequency of Alcohol Consumption 2-3 times a wee k 10/16/2019 Average Number of Drinks 3 or 4 020 Frequency of Binge Drinking Never 01/2020 PHQ-2 Answer Date Recorded Patient Health Questionnaire-2 Score 0 06/10/2023 [facility] [place] [facility] Occup[facility] ional Health - Occupational Stress [...] Sex Assigned at Male 06/28/2024 1:41 PM FUR SEWER Legal Sex Male 1:57 PM CDT Gender Identity Male 08/31/2021 9:35 AM CDT Sexual Orientation Straight 08/31/2021 9: 35 AM CDT documented as of this encounter Plan of Treatment Upcoming Encounters Date Type Department Care Team (Late st Contact Info) Description 02/25/2025 10:00 AM CDT [facility] [facility], [address] [address] Una Peterson APRN [address] [facility], [address] [address] documented as of this encounter Visit Diagnoses Not on filedocumented in this encounter Additional Health Concerns Assessment Noted Time PHQ-9 Depression Total Score: 3 06/10/19 24 3:25 PM FUR SEWER documented as of this encounter Care Teams Bedspread Folder Relationship Specialty Start Date End Date Rahda Galvan DO [address] [place], [place] [phone] PCP - General FAMILY PRACTICE 05/24/22 documented as of this encounter
--- OUTSIDE RECORDS SUMMARY | 2025-02-18 16:13 | XMS_ITS | Encounter Summary ---
Author Organization [facility] Address [facility] [place] [address] Care Team Providers Care Sack Cleaning Hand Name Role Phone Radha Galvan DO Primary Care Provider [phone] Encounter Details Date Type Department Care Team (Late st Contact Info) Description 08/02/2023 [employer] Message Enc [facility] Family Medicine - [place] [address], [address] [place] [phone] [employer], [facility] Provider Holter monitor Social History Tobacco Use Types Packs/Day Years Used Date Smoking Tobacco: Former Cigarettes 0.5 2 0 09/06/2008 - 09/06/2010 Cigars Smokeless Tobacco: Former Quit: 09/12/2019 Comments:Former, Quit 2010 Alcohol Use Standard Drinks/Week Comments Yes 2 (1 standard drink = 0.6 oz pur e alcohol) Social AUDIT-C Answer Date Recorded Frequency of Alcohol Consumption 2-3 times a wee k 10/16/2019 Average Number of Drinks 3 or 4 020 Frequency of Binge Drinking Never 01/2020 PHQ-2 Answer Date Recorded Patient Health Questionnaire-2 Score 0 06/10/2023 [facility] [place] of Occupat ional Health - Occupational Stress [...] Sex Assigned at Male 06/28/2024 1:41 PM PREPRESS MANAGER Legal Sex Male 1:57 PM CDT Gender Identity Male 08/31/2021 9:35 AM CDT Sexual Orientation Straight 08/31/2021 9: 35 AM CDT documented as of this encounter Plan of Treatment Upcoming Encounters Date Type Department Care Team (Late st Contact Info) Description 02/25/2025 10:00 AM CDT [facility] Visit [facility] [facility] [address] [place] [address] Una Peterson APRN 3 [facility], [address] [id number] documented as of this encounter Visit Diagnoses Not on filedocumented in this encounter Additional Health Concerns Assessment Noted Time PHQ-9 Depression Total Score: 3 06/10/19 24 3:25 PM PREPRESS MANAGER documented as of this encounter Care Teams Sack Cleaning Hand Relationship Specialty Start Date End Date Radha Galvan DO [address] [facility] [place] [address] PCP - General FAMILY PRACTICE 05/24/22 documented as of this encounter
== END 2025-02-18 15:58 | disposition home or self-care (01) ==
LOC: ANHED 15:55
PROVIDERS: Student in an Organized Health Care Education/Training Program; Emergency Provider Physician Assistant
DX: K42.9 Umbilical hernia without obstruction or gangrene (principal)
CPT/HCPCS: 36415; 74177; 80053; 81003; 83690; 85025; 99284; Q9967